=== PATIENT | male | born 1985 | race Caucasian/White ===

== ENCOUNTER 2019-09-20 10:28 | Day surgery (SDC) | payer BC ==
[2019-09-20] MEDS ORDERED: FENTANYL PF 100MCG/2ML VIAL IV ONE (10:29)
[2019-09-20] MEDS ORDERED: LIDOCAINE 2% MDV (20MG/ML) 20ML VIAL IV ONE (10:29)
[2019-09-20] MEDS ORDERED: PROPOFOL 10 MG/ML VIAL IV ONE (10:29)
--- NOTE | 2019-09-20 14:20 | Operative Note ---
OPERATION: ESOPHAGOGASTRODUODENOSCOPY with photo. PREOPERATIVE DIAGNOSIS: Dysphagia. POSTOPERATIVE DIAGNOSIS: LA grade D esophagitis with distal esophageal stricture. PROCEDURE: After informed consent was obtained from the patient, he was placed in the left lateral decubitus position in the endoscopy suite, sedated and monitored by the department of anesthesia. A well-lubricated KAB037 gastroscope was placed in the posterior oropharynx under direct visualization and passed to the proximal esophagus. The endoscope was advanced through the proximal, mid, and distal esophagus. The distal esophagus demonstrated ulcerations extending to the GE junction consistent with LA grade D esophagitis. There was a slight narrowing in the distal esophagus consistent with a stricture. This was easily traversed. The gastric body, antrum, pylorus, duodenal bulb, and sweep were unremarkable. There was greater than the expected amount of liquid in the stomach, which was evacuated with the endoscope. J-turn views of the proximal stomach were unremarkable. The endoscope was straightened and the endoscope removed from the patient. RECOMMENDATIONS: The patient should be in a [id number] PPI. I will repeat his upper endoscopy in 8 weeks to assess healing. As always, thank you for allowing me to participate in the healthcare of your patients. MAUDE
== END 2019-09-20 12:10 | disposition home or self-care (01) ==
LOC: HOP 10:28
PROVIDERS: ATTEND Internal Medicine Gastroenterology
DX: R13.10 Dysphagia, unspecified (principal); K20.8 Other esophagitis; K22.2 Esophageal obstruction; I10 Essential (primary) hypertension

== ENCOUNTER 2019-11-22 10:09 | Day surgery (SDC) | payer BC ==
[2019-11-22] MEDS ORDERED: PROPOFOL 10 MG/ML VIAL IV ONE (10:10)
[2019-11-22] MEDS ORDERED: FENTANYL PF 100MCG/2ML VIAL IV ONE (10:10)
[2019-11-22] MEDS ORDERED: LIDOCAINE 2% MDV (20MG/ML) 20ML VIAL IV ONE (10:10)
--- NOTE | 2019-11-23 10:00 | Operative Note ---
OPERATION: ESOPHAGOGASTRODUODENOSCOPY with biopsy. PREOPERATIVE DIAGNOSIS: History of LA grade D esophagitis and assessment for healing. POSTOPERATIVE DIAGNOSES: 1. Healed ulcers with associated irregularity of the squamocolumnar border, rule out short-segment Mccormick's. 2. Small hiatal hernia. PROCEDURE: After informed consent was obtained from the patient, he was placed in the left lateral decubitus position in the endoscopy suite, sedated and monitored by the department of anesthesia. A well-lubricated NEC048 gastroscope was placed in the posterior oropharynx under direct visualization and passed to the proximal esophagus. The endoscope was advanced through the proximal, mid, and distal esophagus. The previous inflammatory changes and ulcerations have resolved. There was irregularity of the squamocolumnar border indicative of possible short-segment Mccormick's. There was a small hiatal hernia. The subdiaphragmatic stomach demonstrated normal distensibility, normal rugal folds. The body, antrum, pylorus, duodenal bulb and sweep were unremarkable. J-turn views of the proximal stomach were unrevealing. The endoscope was then straightened. GE junction biopsies were obtained. The endoscope was removed from the patient with no new findings noted. RECOMMENDATIONS: The patient can reduce his PPI to once daily. Further surveillance recommendation will be based on tissue histology. In particular, if there is evidence of intestinal metaplasia, repeat upper endoscope in 3 years would be suggested. In that instance, he for sure would need to be on PPI indefinitely. As always, thank you for allowing me to participate in the healthcare of your patients. MAUDE
== END 2019-11-22 11:48 | disposition home or self-care (01) ==
LOC: HOP 10:09
PROVIDERS: ATTEND Internal Medicine Gastroenterology
DX: K22.70 Barrett's esophagus without dysplasia (principal); K44.9 Diaphragmatic hernia without obstruction or gangrene; R25.1 Tremor, unspecified
CPT/HCPCS: 43239; 00731; J3010